=== PATIENT | female | born 1940 | race Caucasian/White ===

== ENCOUNTER 2017-01-29 09:53 | Emergency (ER) | payer MEDICARE, OTHER ==
--- NOTE | ~2017-01-29 | ER ---
PAT[facility] NAME[facility] AGE: 76 Y [address] ROOM: [place] [address] LOCATION: [facility] ADMIT DATE: 01/29/2017 ER/Outpatient Report DISCHARGE DATE: 01/29/2017 FAMILY PHYSICIAN: PHYSICIAN, NO ATTENDING PHYSICIAN: Rad Truong CHIEF COMPLAINT: Left back pain. HISTORY OF PRESENT ILLNESS: The patient states that she fell earlier today while she was trying to go to the restroom and landed on the corner of the stepstool. She states she has been suffering from vertigo for the last several weeks. She is transitioning from her winter home in [place] to [place], [place] for her traditional residence. She has never had vertigo before and has not been seen for this issue, but plans on being seen as soon as she gets home. She states she has had an upset stomach from travel and was trying to get to the bathroom in a hurry and had a vertigo attack and thus missed the stool and landed on the step. She has had worsening back and chest discomfort with more pain with breathing since the onset. She denies any anticoagulation issues. She is not currently dizzy. PAST MEDICAL HISTORY: Documented on the record and reviewed by me. SOCIAL HISTORY: Documented on the record and reviewed by me. MEDICATIONS: Documented on the record and reviewed by me. ALLERGIES: DOCUMENTED ON THE RECORD AND REVIEWED BY ME. REVIEW OF SYSTEMS: All systems reviewed and negative except as noted in the HPI. PHYSICAL EXAMINATION: VITAL SIGNS: Blood pressure 152/78, pulse is 76, respiratory rate is 22, temp 97.6, and SpO2 is 100% on room air. Pain is rated at 10/10, sharp. GENERAL: Age-appropriate female, in obvious pain, no respiratory distress, breathing shallowly, and sitting upright on the exam table. NEUROLOGIC: Awake and alert. GCS is 15. No focal deficits. No asymmetry on exam. She does have left-beating nystagmus and left-field gaze only, fatigable. No other neuro deficits. PATIENT'S NAME: [facility] AGE: 76 Y [address] ROOM: [place] [address] LOCATION: [facility] ADMIT DATE: 01/29/2017 ER/Outpatient Report DISCHARGE DATE: 01/29/2017 FAMILY PHYSICIAN: PHYSICIAN, NO ATTENDING PHYSICIAN: Rad Truong HEENT: Normocephalic, atraumatic. Eyes are PERRL. Oropharynx is clear. NECK: Supple. Trachea is midline. CHEST: Heart is regular rate and rhythm with no murmurs. LUNGS: Clear to auscultation bilateral with no rhonchi, wheezes, or rales. BACK: Notable for marked tenderness over the lateral and inferior aspects of the left scapula. The back is otherwise nontender. No spinal tenderness. ABDOMEN: Soft, nontender, and nondistended. No rebound or guarding. EXTREMITIES: Warm and well-perfused. No obvious contusions, abnormalities, or deformities. SKIN: Warm, dry, and intact. LABS AND X-RAYS: Plain films of the chest do reveal that the patient has no significant abnormalities per my read. The patient had persistent chest pain and the CT of the chest was obtained. The patient does have a left posterior 7th rib fracture, which correlates directly with her pain. IMPRESSION: Left posterior 7th rib fracture. EMERGENCY DEPARTMENT COURSE: The patient was seen and evaluated as above. She has no significant hemodynamic compromise. Two Ava helps her feel much better. She was given incentive spirometer. She will be discharged home to the care of her family. She will be further evaluated upon arrival at home. She was given an incentive spirometer, encouraged to use it as to prevent pneumonia. Hydration was encouraged as well. She was encouraged to have activity on her normal daily basis as tolerated by pain. She remained otherwise stable. She was able to walk and felt okay for discharge. She should return immediately if there are any worsening problems with breathing. MD TIMMY CHIN/james /[id number] d: 01/29/17 2339 t: 02/01/173, OUTPATIENT REPORT
== END 2017-01-29 14:05 | disposition disaster alternative care site (69) ==
LOC: GACC 09:53
DX: S22.32XA Fracture of one rib, left side, initial encounter for closed fracture (principal); W19.XXXA Unspecified fall, initial encounter